=== PATIENT | female | born 1955 | race Caucasian/White ===

== ENCOUNTER → 2016-12-09 | Outpatient (CLI) | payer MEDICARE, BC ==
[2016-12-09 09:46] VITALS: BP 155/68; PULSE 66; RESP 16; TEMP 98.5; BMI 42.1
[2016-12-09 11:18] LABS: CH 30.6; CHCM 32.9; HCT 40.1 % (34.0-46.0); HDW 2.32; HGB 13.2 gm/dL (11.4-16.0); MCH 30.6 pg (25.0-35.0); MCHC 32.8 g/dL (31.0-37.0); MCV 93.3 fL (80.0-100.0); Mean Platelet Volume 7.1; RDW 12.5 % (11.5-15.5); WBC 6.3 k/uL (3.8-10.6)
[2016-12-09 11:51] LABS: ALT 31 U/L (9-52); AST 20 U/L (14-36); Alkaline Phosphatase 88 U/L (38-126); Anion Gap 10 mmol/L; Blood Urea Nitrogen 21 mg/dL (7-17); Calcium 9.4 mg/dL (8.4-10.2); Carbon Dioxide 28 mmol/L (22-30); Chloride 104 mmol/L (98-107); Cholesterol 207 mg/dL (<200); Glucose 114 mg/dL (74-99); HDL Cholesterol 70 mg/dL (40-60); Iron 92 ug/dL (37-170); Magnesium 1.9 mg/dL (1.6-2.3); Non-African American GFR(MDRD) >60 (>60 ml/min/1.73 sqM); Phosphorous 3.9 mg/dL (2.5-4.5); Potassium 4.6 mmol/L (3.5-5.1); Sodium 142 mmol/L (137-145); Total Bilirubin 0.4 mg/dL (0.2-1.3); Triglycerides 111 mg/dL (<150)
[2016-12-09 12:01] LABS: Prealbumin 22 mg/dL (18-36); Total Iron Binding Capacity 294 ug/dL (265-497)
[2016-12-09 12:56] LABS: Vitamin B12 763 pg/mL (239-931)
--- NOTE | 2016-12-09 14:25 | P.HPBAR ---
Bariatric H&P - History & Physicial History & Physicial: Visit/CC: Bariatric follow up Patient initial contact: Morbid obesity status post laparoscopic sleeve gastrectomy 02/10/2016 61 years old female with morbid obesity initial BMI 59.3, height 5 feet 5 inches , weight 165.65 kgs status post laparoscopic sleeve gastrectomy .She she has not been able to lose much weight. She admits to eating cake and cookies. At one time she eats about 5 cookies.. No nausea or vomiting. No postprandial right upper quadrant pain. Back pain and joint pain improved after weight loss. She is undergoing knee replacement in Dec 2016. Her comorbid conditions include obstructive sleep apnea on CPAP, chronic venous stasis in bilateral lower extremities, lymphedema bilateral lower legs, hypertension, bipolar disorder with depression, binge eating disorder , panic disorder with Agoraphobia , hypothyroidism , bilateral knee arthritis, left shoulder arthritis, chronic back pain, impaired glucose levels, atrial fibrillation on Xarelto. Preoperative visit #1 08/01/14 : WEIGHT 165.65 kgs, BMI 59.3 Preoperative visit #2 09/25/2015: Weight 156.26 kgs, BMI 57.3 Preoperative visit #3 10/09/2015: Weight 159.32kgs, BMI 58.5 Preoperative visit #4 02/05/2016: Weight 146.14 kgs, BMI 53.6 Surgery date: 02/10/2016 Postoperative visit #1 02/19/2016: Weight 142 KG, BMI 52.2 Postoperative visit #2 03/04/2016: Weight 136.12 KG, BMI 49.9 Postoperative visit #3 05/06/2016: Weight 127KG, BMI 46.6 Postoperative visit #4, 08/19/2016, weight 123.19 KG, BMI 45.1 Postoperative visit #5, 12/09/2016, weight 117.57KG, BMI 42 Review of Systems Constitutional: Denies fever, weight loss or loss of appetite HEENT: No difficulty in vision or hearing. Denies dysphagia. Wears glasses Cardiovascular: Denies chest pain, palpitations, dizziness, shortness of breath. Respiratory: No asthma . No cough or respiratory tract infection.Recently diagnosed sleep apnea on CPAP Gastrointestinal: No recent change in bowel habits, no abdominal pain, no nausea or vomiting. Last colonoscopy was 5years ago Integumentary: Long-standing skin changes with intermittent skin breakdown in bilateral lower extremities. Increased ankle swelling at the end of the day. Skin rash has resolved Genitourinary: Urinary incontinence. Wears diapers . Neurologic: No seizures, denies weakness in upper or lower extremities Musculoskeletal: Chronic left knee pain. Residual pain in right knee S/P knee replacement x2. Chronic left shoulder pain and low back pain. Psychiatry: Known history of Bipolar disorder, anxiety disorder and binge eating disorder. No suicidal thoughts Social History: Friends and family support available. Has daughter and grandchildren. She is . Past Medical History Past Medical History: Atrial Fibrillation, Diabetes Mellitus, GERD/Reflux, Hypertension, Osteoarthritis (OA), Sleep Apnea/CPAP/BIPAP, Thyroid Disorder Additional Past Medical History / Comment(s): A-Fib, JOSEPH with CPAP, borderline diabetes, hypothyroidism, URINARY INCONTINENCE, Chronic back pain, post menopausal, right knee replacement, left knee pain needs replacement 12/22/16 History of Any Multi-Drug Resistant Organisms: None Reported Past Surgical History: Adenoidectomy, Appendectomy, Bariatric Surgery, Breast Surgery, Joint Replacement, Orthopedic Surgery, Tonsillectomy Additional Past Surgical History / Comment(s): 02/10/16 laparoscopic sleeve gastrectomy. Other surgeries: breast bx, Rt knee replaced x2, Lt shoulder surgery, ANDRZEJ EYE SX FOR LAZY EYE, PAIN CLINIC PROCEDURES Past Anesthesia/Blood Transfusion Reactions: No Reported Reaction Past Psychological History: Bipolar Additional Psychological History / Comment(s): Pt resides alone. She is independent. She uses a wheeled walker to ambulate. She drives. She has no home care agency use. She has a CPAP machine which she brought with her. Smoking Status: Former smoker Past Alcohol Use History: None Reported Additional Past Alcohol Use History / Comment(s): quit smoking at age 33 started smoking at age 17 Past Drug Use History: None Reported - Past Family History Father Family Medical History: CVA/TIA Additional Family Medical History / Comment(s): Father at age 93 yrs. Mother Family Medical History: Cancer Additional Family Medical History / Comment(s): Mother had breast cancer. She at age 56 yrs. Surgical - Exam Vital Signs Temp Pulse Resp BP 98.5 F 66 16 155/68 12/09/16 09:16 12/09/16 09:16 12/09/16 09:16 12/09/16 09:16 General: Patient is alert and oriented to time, place and person and cooperative with exam. She is not in acute distress. S HEENT: No pallor, no icterus, no thyroid enlargement, no cervical lymphadenopathy. Chest: Bilateral equal breath sounds present. No wheezes, no crackles. Cardiovascular: Regular rate and rhythm. Abdomen: Soft, nontender, nondistended. No right upper quadrant tenderness. Her incisions are clean dry and intact. No surgical site infection Integumentary: Bilateral lower extremity chronic venous dermatitis. Bilateral edema and mild redness Neurologic: Cranial nerves II-XII intact. Strength upper and lower extremities 5/5. Psychiatric: No anxiety or psychosis. No suicidal thoughts. Results - Labs 12/09/16 10:31 12/09/16 10:31 Abnormal Lab Results - Last 24 Hours (Table) 12/09/16 Range/Units 10:31 BUN 21 H (7-17) mg/dL Glucose 114 H (74-99) mg/dL Cholesterol 207 H (<200) mg/dL LDL Cholesterol, Calc 115 H (0-99) mg/dL HDL Cholesterol 70 H (40-60) mg/dL Diabetes panel 12/09/16 Range/Units 10:31 Sodium 142 (137-145) mmol/L Potassium 4.6 (3.5-5.1) mmol/L Chloride 104 (98-107) mmol/L Carbon Dioxide 28 (22-30) mmol/L BUN 21 H (7-17) mg/dL Creatinine 0.80 (0.52-1.04) mg/dL Glucose 114 H (74-99) mg/dL Calcium 9.4 (8.4-10.2) mg/dL AST 20 (14-36) U/L ALT 31 (9-52) U/L Alkaline Phosphatase 88 (38-126) U/L Total Protein 7.0 (6.3-8.2) g/dL Albumin 4.1 (3.5-5.0) g/dL Triglycerides 111 (<150) mg/dL HDL Cholesterol 70 H (40-60) mg/dL Thyroid panel 12/09/16 Range/Units 10:31 TSH 3.200 (0.465-4.680) mIU/L Calcium panel 12/09/16 Range/Units 10:31 Calcium 9.4 (8.4-10.2) mg/dL Phosphorus 3.9 (2.5-4.5) mg/dL Albumin 4.1 (3.5-5.0) g/dL Pituitary panel 12/09/16 Range/Units 10:31 Sodium 142 (137-145) mmol/L Potassium 4.6 (3.5-5.1) mmol/L Chloride 104 (98-107) mmol/L Carbon Dioxide 28 (22-30) mmol/L BUN 21 H (7-17) mg/dL Creatinine 0.80 (0.52-1.04) mg/dL Glucose 114 H (74-99) mg/dL Calcium 9.4 (8.4-10.2) mg/dL TSH 3.200 (0.465-4.680) mIU/L Adrenal panel 12/09/16 Range/Units 10:31 Sodium 142 (137-145) mmol/L Potassium 4.6 (3.5-5.1) mmol/L Chloride 104 (98-107) mmol/L Carbon Dioxide 28 (22-30) mmol/L BUN 21 H (7-17) mg/dL Creatinine 0.80 (0.52-1.04) mg/dL Glucose 114 H (74-99) mg/dL Calcium 9.4 (8.4-10.2) mg/dL Total Bilirubin 0.4 (0.2-1.3) mg/dL AST 20 (14-36) U/L ALT 31 (9-52) U/L Alkaline Phosphatase 88 (38-126) U/L Total Protein 7.0 (6.3-8.2) g/dL Albumin 4.1 (3.5-5.0) g/dL Bariatric Assessment & Plan (1) Arthritis of left knee Status: Acute (2) Atrial fibrillation Status: Acute (3) Bipolar disorder Status: Acute (4) Hypothyroid Status: Acute (5) Low back pain Status: Acute (6) Sleep apnea Status: Acute Plan: 1. Patient demonstrating binge eating behavior. Extensive counseling done. Maintain food diary. Dietitian consult today 2. Repeat labs 3. Encourage attending bariatric support meeting 4. Okay to proceed with the knee surgery as per Dr. Graeme Villarreal. 5. Resume daily multivitamin 6. Follow up at the bariatric center in 3 months 7. Bilateral screening mammogram Bariatric Checklist Checklist: Plan: Checklist: EGD: 1. Hiatal hernia: 2. H. Pylori: HgbA1c: Vitamin D: Smoking: Former smoker Primary care physician referral: Lenora Psychiatry clearance: Cardiology clearance: Sleep study: Diet journal: VTE risk score: VTE risk level: Rehab needs at discharge:
[2016-12-16 18:30] LABS: Selenium 113 mcg/L (63-160)
== END | disposition home or self-care (01) ==
LOC: BARWHC3 09:15
PROVIDERS: ATTEND Surgery
DX: Z48.815 Encounter for surgical aftercare following surgery on the digestive system (principal); Z71.3 Dietary counseling and surveillance; Z98.84 Bariatric surgery status; E66.01 Morbid (severe) obesity due to excess calories; Z68.41 Body mass index [BMI] 40.0-44.9, adult; G47.30 Sleep apnea, unspecified; Z99.89 Dependence on other enabling machines and devices; Z87.891 Personal history of nicotine dependence; I48.91 Unspecified atrial fibrillation; F31.9 Bipolar disorder, unspecified; M19.072 Primary osteoarthritis, left ankle and foot; E03.9 Hypothyroidism, unspecified; M54.5 Low back pain; F50.81 Binge eating disorder
CPT/HCPCS: 84255; 84134; 84425; 80061; 80053; 82607; 82728; 82525; 82746; 83540; 83550; 83735; 84100; 84443; 84590; 84630; 85027; 82306; 97803; 36415; G0463; 99211

== ENCOUNTER → 2017-03-24 | Outpatient (CLI) | payer MEDICARE, BC ==
[2017-03-24 10:46] VITALS: BP 132/70; PULSE 66; RESP 16; TEMP 97; BMI 40.4
--- NOTE | 2017-03-24 11:49 | P.GSHP ---
History of Present Illness H&P Date: 03/24/17 Chief Complaint: S/P lap sleeve gastrectomy 61 years old female with morbid obesity initial BMI 59.3, height 5 feet 5 inches , weight 165.65 kgs status post laparoscopic sleeve gastrectomy .She has been adhering to post bariatric surgery diet and has good results with weight loss. No nausea or vomiting. No postprandial right upper quadrant pain. Back pain and joint pain improved after weight loss. S/P left knee replacement in Dec 2016. Her comorbid conditions include obstructive sleep apnea on CPAP, chronic venous stasis in bilateral lower extremities, lymphedema bilateral lower legs, hypertension, bipolar disorder with depression, binge eating disorder , panic disorder with Agoraphobia , hypothyroidism , bilateral knee arthritis, left shoulder arthritis, chronic back pain, impaired glucose levels, atrial fibrillation on Xarelto. Preoperative visit #1 08/01/14 : WEIGHT 165.65 kgs, BMI 59.3 Preoperative visit #2 09/25/2015: Weight 156.26 kgs, BMI 57.3 Preoperative visit #3 10/09/2015: Weight 159.32kgs, BMI 58.5 Preoperative visit #4 02/05/2016: Weight 146.14 kgs, BMI 53.6 Surgery date: 02/10/2016 Postoperative visit #1 02/19/2016: Weight 142 KG, BMI 52.2 Postoperative visit #2 03/04/2016: Weight 136.12 KG, BMI 49.9 Postoperative visit #3 05/06/2016: Weight 127KG, BMI 46.6 Postoperative visit #4, 08/19/2016, weight 123.19 KG, BMI 45.1 Postoperative visit #5, 12/09/2016, weight 117.57KG, BMI 42 Postoperative visit #5, 03/24/2017, weight 110.02KG, BMI 40 - Review of Systems Comment: Constitutional: Denies fever, weight loss or loss of appetite HEENT: No difficulty in vision or hearing. Denies dysphagia. Wears glasses Cardiovascular: Denies chest pain, palpitations, dizziness, shortness of breath. Respiratory: No asthma . No cough or respiratory tract infection.Recently diagnosed sleep apnea on CPAP Gastrointestinal: No recent change in bowel habits, no abdominal pain, no nausea or vomiting. Last colonoscopy was 5years ago Integumentary: Long-standing skin changes with intermittent skin breakdown in bilateral lower extremities. Increased ankle swelling at the end of the day. Skin rash has resolved Genitourinary: Urinary incontinence. Wears diapers . Neurologic: No seizures, denies weakness in upper or lower extremities Musculoskeletal: Chronic left knee pain. Residual pain in right knee S/P knee replacement x2. Chronic left shoulder pain and low back pain. Psychiatry: Known history of Bipolar disorder, anxiety disorder and binge eating disorder. No suicidal thoughts Social History: Friends and family support available. Has daughter and grandchildren. Past Medical History Past Medical History: Atrial Fibrillation, Diabetes Mellitus, GERD/Reflux, Hypertension, Osteoarthritis (OA), Sleep Apnea/CPAP/BIPAP, Thyroid Disorder Additional Past Medical History / Comment(s): A-Fib, JOSEPH with CPAP, borderline diabetes, hypothyroidism, URINARY INCONTINENCE, Chronic back pain, post menopausal, right knee replacement, left knee pain needs replacement 12/22/16 History of Any Multi-Drug Resistant Organisms: None Reported Past Surgical History: Adenoidectomy, Appendectomy, Bariatric Surgery, Breast Surgery, Joint Replacement, Orthopedic Surgery, Tonsillectomy Additional Past Surgical History / Comment(s): 02/10/16 laparoscopic sleeve gastrectomy. Other surgeries: breast bx, Rt knee replaced x2, Lt shoulder surgery, ANDRZEJ EYE SX FOR LAZY EYE, PAIN CLINIC PROCEDURES Knee Surgery in December 2016 Past Anesthesia/Blood Transfusion Reactions: No Reported Reaction Past Psychological History: Bipolar Additional Psychological History / Comment(s): Pt resides alone. She is independent. She uses a wheeled walker to ambulate. She drives. She has no home care agency use. She has a CPAP machine which she brought with her. Smoking Status: Former smoker Past Alcohol Use History: None Reported Additional Past Alcohol Use History / Comment(s): quit smoking at age 33 started smoking at age 17 Past Drug Use History: None Reported - Past Family History Father Family Medical History: CVA/TIA Additional Family Medical History / Comment(s): Father at age 93 yrs. Mother Family Medical History: Cancer Additional Family Medical History / Comment(s): Mother had breast cancer. She at age 56 yrs. Medications and Allergies Home Medications Medication Instructions Recorded Confirmed Type Famotidine [Pepcid] 20 mg PO QAM 04/02/14 03/24/17 History Furosemide [Lasix] 40 mg PO DAILY PRN 04/02/14 03/24/17 History Sertraline [Zoloft] 200 mg PO QAM 04/02/14 03/24/17 History carBAMazepine [TEGretol XR] 200 mg PO BID 04/02/14 03/24/17 History Rivaroxaban [Xarelto] 20 mg PO HS 12/28/14 03/24/17 History Flecainide Acetate [Tambocor] 100 mg PO Q12HR 01/29/16 03/24/17 History Levothyroxine Sodium [Synthroid] 100 mcg PO DAILY 01/29/16 03/24/17 History Calcium Carbonate [Calcium] 600 mg PO DAILY 05/06/16 03/24/17 History Cholecalciferol [Vitamin D3] 1,000 unit PO DAILY 05/06/16 03/24/17 History Hydrocodone/Acetaminophen [Vicodin 1 tab PO Q6HR PRN 05/06/16 03/24/17 History 5-300 mg Tablet] Multivitamin [Multivitamins Adult 1 each PO DAILY 05/06/16 03/24/17 History Gummies] Gabapentin [Neurontin] 300 mg PO HS 03/24/17 03/24/17 History Allergies Allergy/AdvReac Type Severity Reaction Status Date / Time lithium [Pr[place]] Allergy Severe Rash/Hives Verified 03/24/17 11:07 Surgical - Exam Vital Signs Temp Pulse Resp BP 97.0 F L 66 16 132/70 03/24/17 10:44 03/24/17 10:44 03/24/17 10:44 03/24/17 10:44 General: Patient is alert and oriented to time, place and person and cooperative with exam. She is not in acute distress. HEENT: No pallor, no icterus, no thyroid enlargement, no cervical lymphadenopathy. Chest: Bilateral equal breath sounds present. No wheezes, no crackles. Cardiovascular: Regular rate and rhythm. Abdomen: Soft, nontender, nondistended. No right upper quadrant tenderness. Her incisions are clean dry and intact. Integumentary: Bilateral lower extremity chronic venous dermatitis. Bilateral edema and mild redness in the groin creases Neurologic: Cranial nerves II-XII intact. Strength upper and lower extremities 5/5. Psychiatric: No anxiety or psychosis. No suicidal thoughts. Assessment and Plan (1) Arthritis of left knee Status: Acute (2) Atrial fibrillation Status: Acute (3) Bipolar disorder Status: Acute (4) Hypertension Status: Acute (5) Hypothyroid Status: Acute (6) Low back pain Status: Acute (7) Sleep apnea Status: Acute Plan: 1. Continue with diet plan 2. Increase physical activity as tolerated 3. Continue MVI 4. Check labs 5. Bilateral screening mammograms 6. Follow up in 6 months
== END | disposition home or self-care (01) ==
LOC: BARWHC3 10:00
PROVIDERS: ATTEND Surgery
DX: Z48.815 Encounter for surgical aftercare following surgery on the digestive system (principal); M17.12 Unilateral primary osteoarthritis, left knee; I48.91 Unspecified atrial fibrillation; I10 Essential (primary) hypertension; E03.9 Hypothyroidism, unspecified; G47.30 Sleep apnea, unspecified; F31.9 Bipolar disorder, unspecified; E11.9 Type 2 diabetes mellitus without complications; K21.9 Gastro-esophageal reflux disease without esophagitis; Z87.891 Personal history of nicotine dependence; Z79.899 Other long term (current) drug therapy; Z79.01 Long term (current) use of anticoagulants; Z88.8 Allergy status to other drugs, medicaments and biological substances; E66.01 Morbid (severe) obesity due to excess calories; Z68.43 Body mass index [BMI] 50.0-59.9, adult; Z98.84 Bariatric surgery status
CPT/HCPCS: 99211

== ENCOUNTER → 2017-03-30 | Outpatient (CLI) | payer MEDICARE, BC ==
[2017-03-30 13:39] LABS: ALT 33 U/L (9-52); AST 17 U/L (14-36); Alkaline Phosphatase 82 U/L (38-126); Anion Gap 9 mmol/L; Blood Urea Nitrogen 18 mg/dL (7-17); Calcium 9.7 mg/dL (8.4-10.2); Carbon Dioxide 26 mmol/L (22-30); Chloride 105 mmol/L (98-107); Cholesterol 218 mg/dL (<200); Glucose 95 mg/dL (74-99); HDL Cholesterol 79 mg/dL (40-60); Non-African American GFR(MDRD) >60 (>60 ml/min/1.73 sqM); Potassium 4.7 mmol/L (3.5-5.1); Sodium 140 mmol/L (137-145); Total Bilirubin 0.4 mg/dL (0.2-1.3); Total Protein 6.8 g/dL (6.3-8.2); Triglycerides 103 mg/dL (<150)
[2017-03-30 13:54] LABS: CH 30.7; CHCM 32.6; HDW 2.29; HGB 13.2 gm/dL (11.4-16.0); MCH 30.6 pg (25.0-35.0); MCHC 32.3 g/dL (31.0-37.0); MCV 94.7 fL (80.0-100.0); Mean Platelet Volume 7.1; RBC 4.33 m/uL (3.80-5.40); RDW 12.7 % (11.5-15.5); WBC 5.5 k/uL (3.8-10.6)
[2017-03-30 17:59] LABS: Hemoglobin A1C 5.5 % (4.2-6.1)
== END ==
LOC: LABWHC1 12:30
PROVIDERS: ATTEND Surgery
DX: Z48.815 Encounter for surgical aftercare following surgery on the digestive system (principal); E66.01 Morbid (severe) obesity due to excess calories; Z98.84 Bariatric surgery status
CPT/HCPCS: 36415; 80053; 80061; 82306; 83036; 85027

== ENCOUNTER → 2017-05-25 | Outpatient (CLI) | payer MEDICARE, BC ==
--- NOTE | 2017-05-25 14:29 | MM ---
Reason for exam: additional evaluation requested from prior study. Last mammogram was performed 1 year ago. History: Patient is postmenopausal. Family history of breast cancer in mother at age 53. Benign US biopsy breast VAD LT of the left breast, June 03, 2016. Benign excisional biopsy of the left breast, June 2015. Benign excisional biopsy of the right breast. Physical Findings: Nurse did not find any significant physical abnormalities on exam. MG 3D Diag Mammo W/Cad ANDRZEJ Bilateral CC and MLO view(s) were taken. Prior study comparison: June 03, 2016, left breast MG diagnostic mammo LT wo CAD. May 21, 2016, bilateral MG 3d diag mammo w/cad ANDRZEJ. There are scattered fibroglandular densities. Finding #1: There is stable architectural distortion in both breasts consistent with known biopsy. Finding #2: There are typically benign round, diffuse/scattered and grouped calcifications in both breasts. Previous mammotome biopsy in the left breast. There is no discrete abnormality. These results were verbally communicated with the patient and result sheet given to the patient on 05/25/17. ASSESSMENT: Benign, BI-RAD 2 RECOMMENDATION: Routine screening mammogram of both breasts in 1 year.
== END | disposition home or self-care (01) ==
LOC: RADMAMWWP 13:42
PROVIDERS: ATTEND Surgery
DX: R92.8 Other abnormal and inconclusive findings on diagnostic imaging of breast (principal)
CPT/HCPCS: G0204; G0279

== ENCOUNTER → 2018-02-07 | Outpatient (CLI) | payer MEDICARE, BC ==
[2018-02-07 13:36] VITALS: BP 149/68; PULSE 105; TEMP 98.4; BMI 41.2
[2018-02-07 14:40] LABS: HCT 42.8 % (34.0-46.0); HGB 13.8 gm/dL (11.4-16.0); MCH 29.2 pg (25.0-35.0); MCHC 32.2 g/dL (31.0-37.0); MCV 90.5 fL (80.0-100.0); Mean Platelet Volume 7.1; Platelet Count 354 k/uL (150-450); RBC 4.73 m/uL (3.80-5.40); RDW 12.5 % (11.5-15.5); WBC 7.4 k/uL (3.8-10.6)
[2018-02-07 15:03] LABS: ALT 24 U/L (9-52); AST 22 U/L (14-36); Albumin 4.3 g/dL (3.5-5.0); Alkaline Phosphatase 97 U/L (38-126); Anion Gap 12 mmol/L; Blood Urea Nitrogen 30 mg/dL (7-17); Calcium 9.8 mg/dL (8.4-10.2); Carbon Dioxide 29 mmol/L (22-30); Chloride 101 mmol/L (98-107); Glucose 109 mg/dL (74-99); Sodium 142 mmol/L (137-145); Total Bilirubin 0.3 mg/dL (0.2-1.3); Total Protein 7.6 g/dL (6.3-8.2)
--- NOTE | 2018-02-07 16:51 | P.HPBAR ---
Bariatric H&P - History & Physicial H&P Date: 02/07/18 History & Physicial: Visit/CC: two year follow up Patient initial contact: Initial weight: 165.652 kg Initial weight in pounds: 365.20 Height: 5 ft 5 in Initial BMI: 60.7 Last weight: Current weight: 112.491 kg Current weight in pounds: 248.00 Current BMI: 41.2 Calvin body weight (based on NIH guidelines): 56.699 kg Excess body weight loss: 48.7% The patient is a 62 year-old F who presents for Bariatric Assessment. Patient presents today for gastric sleeve follow-up. She is a previous patient of Dr. isabel. She has gained some weight over the last few months. She's had some minimal GERD. She also some complaints of knee and hip arthritis. Past Medical History Past Medical History: Atrial Fibrillation, GERD/Reflux, Hypertension, Osteoarthritis (OA), Sleep Apnea/CPAP/BIPAP, Thyroid Disorder Additional Past Medical History / Comment(s): A-Fib, JOSEPH with CPAP, borderline diabetes, hypothyroidism, URINARY INCONTINENCE, Chronic back pain, post menopausal, right knee replacement, left knee pain needs replacement 12/22/16 History of Any Multi-Drug Resistant Organisms: None Reported Past Surgical History: Adenoidectomy, Appendectomy, Bariatric Surgery, Breast Surgery, Joint Replacement, Orthopedic Surgery, Tonsillectomy Additional Past Surgical History / Comment(s): 02/10/16 laparoscopic sleeve gastrectomy. Other surgeries: breast bx, Rt knee replaced x2, Lt shoulder surgery, ANDRZEJ EYE SX FOR LAZY EYE, PAIN CLINIC PROCEDURES Knee Surgery in December 2016 Past Anesthesia/Blood Transfusion Reactions: No Reported Reaction Past Psychological History: Bipolar Additional Psychological History / Comment(s): Pt resides alone. She is independent. She uses a wheeled walker to ambulate. She drives. She has no home care agency use. She has a CPAP machine which she brought with her. Smoking Status: Former smoker Past Alcohol Use History: None Reported Additional Past Alcohol Use History / Comment(s): quit smoking at age 33 started smoking at age 17 Past Drug Use History: None Reported - Past Family History Father Family Medical History: CVA/TIA Additional Family Medical History / Comment(s): Father at age 93 yrs. Mother Family Medical History: Cancer Additional Family Medical History / Comment(s): Mother had breast cancer. She at age 56 yrs. Surgical - Exam Vital Signs Temp Pulse BP 98.4 F 105 H 149/68 02/07/18 13:33 02/07/18 13:33 02/07/18 13:33 - General well developed, no distress - Eyes PERRL - ENT normal pinna - Neck no masses - Respiratory normal expansion - Cardiovascular Rhythm: regular - Abdomen Abdomen: soft, non tender Results - Labs 02/07/18 14:24 02/07/18 14:24 Abnormal Lab Results - Last 24 Hours (Table) 02/07/18 Range/Units 14:24 BUN 30 H (7-17) mg/dL Glucose 109 H (74-99) mg/dL Diabetes panel 02/07/18 Range/Units 14:24 Sodium 142 (137-145) mmol/L Potassium 5.0 (3.5-5.1) mmol/L Chloride 101 (98-107) mmol/L Carbon Dioxide 29 (22-30) mmol/L BUN 30 H (7-17) mg/dL Creatinine 0.70 (0.52-1.04) mg/dL Glucose 109 H (74-99) mg/dL Calcium 9.8 (8.4-10.2) mg/dL AST 22 (14-36) U/L ALT 24 (9-52) U/L Alkaline Phosphatase 97 (38-126) U/L Total Protein 7.6 (6.3-8.2) g/dL Albumin 4.3 (3.5-5.0) g/dL Thyroid panel 02/07/18 Range/Units 14:24 TSH 1.780 (0.465-4.680) mIU/L Calcium panel 02/07/18 Range/Units 14:24 Calcium 9.8 (8.4-10.2) mg/dL Albumin 4.3 (3.5-5.0) g/dL Pituitary panel 02/07/18 Range/Units 14:24 Sodium 142 (137-145) mmol/L Potassium 5.0 (3.5-5.1) mmol/L Chloride 101 (98-107) mmol/L Carbon Dioxide 29 (22-30) mmol/L BUN 30 H (7-17) mg/dL Creatinine 0.70 (0.52-1.04) mg/dL Glucose 109 H (74-99) mg/dL Calcium 9.8 (8.4-10.2) mg/dL TSH 1.780 (0.465-4.680) mIU/L Adrenal panel 02/07/18 Range/Units 14:24 Sodium 142 (137-145) mmol/L Potassium 5.0 (3.5-5.1) mmol/L Chloride 101 (98-107) mmol/L Carbon Dioxide 29 (22-30) mmol/L BUN 30 H (7-17) mg/dL Creatinine 0.70 (0.52-1.04) mg/dL Glucose 109 H (74-99) mg/dL Calcium 9.8 (8.4-10.2) mg/dL Total Bilirubin 0.3 (0.2-1.3) mg/dL AST 22 (14-36) U/L ALT 24 (9-52) U/L Alkaline Phosphatase 97 (38-126) U/L Total Protein 7.6 (6.3-8.2) g/dL Albumin 4.3 (3.5-5.0) g/dL Bariatric Assessment & Plan Plan: The patient had her routine postoperative labs ordered. She will follow-up in 8 -12 weeks. Her GERD symptoms are minimal be observed. She will try to get more exercise and make the right wrist with her diet. Bariatric Checklist Checklist: Plan: Checklist: EGD: 1. Hiatal hernia: 2. H. Pylori: HgbA1c: Vitamin D: Smoking: Former smoker Primary care physician referral: dr lewis Psychiatry clearance: Cardiology clearance: Sleep study: Diet journal: VTE risk score: VTE risk level: Rehab needs at discharge:
== END | disposition home or self-care (01) ==
LOC: BARWHC3 13:08
PROVIDERS: ATTEND Surgery
DX: Z48.815 Encounter for surgical aftercare following surgery on the digestive system (principal); E66.01 Morbid (severe) obesity due to excess calories; K21.9 Gastro-esophageal reflux disease without esophagitis; E44.0 Moderate protein-calorie malnutrition; E55.9 Vitamin D deficiency, unspecified; Z68.41 Body mass index [BMI] 40.0-44.9, adult; Z87.891 Personal history of nicotine dependence; Z98.84 Bariatric surgery status
CPT/HCPCS: 80156; 80053; 82607; 84443; 85027; 82306; 36415; G0463; 99211

== ENCOUNTER → 2018-04-18 | Outpatient (CLI) | payer MEDICARE, BC ==
[2018-04-18 14:59] VITALS: BP 145/88; PULSE 123; RESP 16; TEMP 97.7; BMI 42.3
--- NOTE | 2018-04-18 16:33 | P.HPBAR ---
Bariatric H&P - History & Physicial H&P Date: 04/18/18 History & Physicial: Visit/CC: sleeve follow-up Patient initial contact: Initial weight: 165.652 kg Initial weight in pounds: 365.20 Height: 5 ft 5 in Initial BMI: 60.7 Last weight: Current weight: 115.212 kg Current weight in pounds: 254.00 Current BMI: 42.3 [place] body weight (based on NIH guidelines): 56.699 kg Excess body weight loss: 46.2% Patient presents today for sleeve gastrectomy follow-up The patient is a 62 year-old F who presents for Bariatric Assessment. She's had some mild complaints of GERD. Past Medical History Past Medical History: Atrial Fibrillation, GERD/Reflux, Hypertension, Osteoarthritis (OA), Sleep Apnea/CPAP/BIPAP, Thyroid Disorder Additional Past Medical History / Comment(s): A-Fib, JOSEPH with CPAP, borderline diabetes, hypothyroidism, URINARY INCONTINENCE, Chronic back pain, post menopausal, right knee replacement, left knee pain needs replacement 12/22/16 History of Any Multi-Drug Resistant Organisms: None Reported Past Surgical History: Adenoidectomy, Appendectomy, Bariatric Surgery, Breast Surgery, Joint Replacement, Orthopedic Surgery, Tonsillectomy Additional Past Surgical History / Comment(s): 02/10/16 laparoscopic sleeve gastrectomy. Other surgeries: breast bx, Rt knee replaced x2, Lt shoulder surgery, ANDRZEJ EYE SX FOR LAZY EYE, PAIN CLINIC PROCEDURES Knee Surgery in December 2016 Past Anesthesia/Blood Transfusion Reactions: No Reported Reaction Past Psychological History: Bipolar Additional Psychological History / Comment(s): Pt resides alone. She is independent. She uses a wheeled walker to ambulate. She drives. She has no home care agency use. She has a CPAP machine which she brought with her. Smoking Status: Former smoker Past Alcohol Use History: None Reported Additional Past Alcohol Use History / Comment(s): quit smoking at age 33 started smoking at age 17 Past Drug Use History: None Reported - Past Family History Father Family Medical History: CVA/TIA Additional Family Medical History / Comment(s): Father at age 93 yrs. Mother Family Medical History: Cancer Additional Family Medical History / Comment(s): Mother had breast cancer. She at age 56 yrs. Surgical - Exam Vital Signs Temp Pulse Resp BP 97.7 F 123 H 16 145/88 04/18/18 14:55 04/18/18 14:55 04/18/18 14:55 04/18/18 14:55 - General well developed, no distress - Eyes PERRL - ENT normal pinna - Neck no masses - Abdomen Abdomen: soft, non tender Bariatric Assessment & Plan Plan: Patient is doing well. She's had excellent weight loss. Her GERD is will be observed. She'll follow-up in 8 weeks. Bariatric Checklist Checklist: Plan: Checklist: EGD: 1. Hiatal hernia: 2. H. Pylori: HgbA1c: Vitamin D: Smoking: Former smoker Primary care physician referral: dr lewis Psychiatry clearance: Cardiology clearance: Sleep study: Diet journal: VTE risk score: VTE risk level: Rehab needs at discharge:
== END | disposition home or self-care (01) ==
LOC: BARWHC3 13:54
PROVIDERS: ATTEND Surgery
DX: Z48.815 Encounter for surgical aftercare following surgery on the digestive system (principal); Z98.84 Bariatric surgery status; Z87.891 Personal history of nicotine dependence
CPT/HCPCS: 99211

== ENCOUNTER → 2018-06-22 | Outpatient (CLI) | payer MEDICARE, BC ==
--- NOTE | 2018-06-28 16:10 | MM ---
Reason for exam: screening (asymptomatic). Last mammogram was performed 1 year and 1 month ago. History: Patient is postmenopausal. Family history of breast cancer in mother at age 53. Benign US biopsy breast VAD LT of the left breast, June 03, 2016. Benign excisional biopsy of the left breast, June 2015. Benign excisional biopsy of the right breast. MG 3D Screening Mammo W/Cad Bilateral CC and MLO view(s) were taken. Prior study comparison: May 25, 2017, bilateral MG 3d diag mammo w/cad ANDRZEJ. June 03, 2016, left breast MG diagnostic mammo LT wo CAD. May 21, 2016, bilateral MG 3d diag mammo w/cad ANDRZEJ. There are scattered fibroglandular densities. There are benign appearing bilateral calcifications. No suspicious abnormality. Post biopsy changes left breast. No significant new finding from prior exam. ASSESSMENT: Benign, BI-RAD 2 RECOMMENDATION: Routine screening mammogram of both breasts in 1 year.
== END ==
LOC: RADMAMWWP 11:10
PROVIDERS: ATTEND Family Medicine
DX: Z12.31 Encounter for screening mammogram for malignant neoplasm of breast (principal); R92.0 Mammographic microcalcification found on diagnostic imaging of breast
CPT/HCPCS: 77063; 77067

== ENCOUNTER → 2019-08-07 | Outpatient (CLI) | payer MEDICARE, BC ==
[2019-08-07 13:21] VITALS: BP 156/77; PULSE 72; RESP 16; TEMP 98.1; BMI 39.1
[2019-08-07 15:06] LABS: HCT 42.1 % (34.0-46.0); MCH 30.3 pg (25.0-35.0); MCHC 33.3 g/dL (31.0-37.0); MCV 90.9 fL (80.0-100.0); Mean Platelet Volume 6.8; Platelet Count 372 k/uL (150-450); RBC 4.63 m/uL (3.80-5.40); RDW 12.4 % (11.5-15.5)
[2019-08-07 19:59] LABS: Vitamin D 25 Hydroxy 23.5 ng/mL (30.0-100.0)
[2019-08-07 20:00] LABS: Folate, Serum 4.7 ng/mL
[2019-08-07 20:24] LABS: African American GFR (CKD) 90.9 (60.0-200.0); Albumin 4.4 g/dL (3.80-4.90); Albumin/Globulin Ratio 1.91 (1.60-3.17); Anion Gap 11.3 mmol/L (4.00-12.00); BUN/Creat Ratio 16.25 Ratio (12.00-20.00); Calcium 9.4 mg/dL (8.7-10.3); Carbon Dioxide 26.7 mmol/L (21.6-31.8); Globulin 2.3 g/dL (1.6-3.3); Potassium 3.9 mmol/L (3.5-5.5); Total Bilirubin 0.5 mg/dL (0.3-1.2); Total Protein 6.7 g/dL (6.2-8.2)
--- NOTE | 2019-08-10 11:20 | P.HPBAR ---
Bariatric H&P - History & Physicial H&P Date: 08/10/19 History & Physicial: Visit/CC: sleeve f/u 2015 Patient initial contact: Initial weight: 165.652 kg Initial weight in pounds: 365.20 Height: 5 ft 5 in Initial BMI: 60.7 Last weight: Current weight: 106.594 kg Current weight in pounds: 235.00 Current BMI: 39.1 [place] body weight (based on NIH guidelines): 56.699 kg Excess body weight loss: 54.2% The patient is a 64 year-old F who presents for Bariatric Assessment. Patient presents today for sleeve gastrectomy follow-up. She's not been seen for over a year. She has complaints of abdominal pain apparently her PCP ordered a ultrasound shows evidence of cholelithiasis. She's had complaints of right quadrant pain. Past Medical History Past Medical History: Atrial Fibrillation, GERD/Reflux, Hypertension, Osteoarthritis (OA), Sleep Apnea/CPAP/BIPAP, Thyroid Disorder Additional Past Medical History / Comment(s): A-Fib, JOSEPH with CPAP, borderline diabetes, hypothyroidism, URINARY INCONTINENCE, Chronic back pain, post menopausal, right knee replacement, left knee pain needs replacement 12/22/16 History of Any Multi-Drug Resistant Organisms: None Reported Past Surgical History: Adenoidectomy, Appendectomy, Bariatric Surgery, Breast Surgery, Joint Replacement, Orthopedic Surgery, Tonsillectomy Additional Past Surgical History / Comment(s): 02/10/16 laparoscopic sleeve gastrectomy. Other surgeries: breast bx, Rt knee replaced x2, Lt shoulder surgery, ANDRZEJ EYE SX FOR LAZY EYE, PAIN CLINIC PROCEDURES Knee Surgery in December 2016 Past Anesthesia/Blood Transfusion Reactions: No Reported Reaction Past Psychological History: Bipolar Additional Psychological History / Comment(s): Pt resides alone. She is independent. She uses a wheeled walker to ambulate. She drives. She has no home care agency use. She has a CPAP machine which she brought with her. Smoking Status: Former smoker Past Alcohol Use History: None Reported Additional Past Alcohol Use History / Comment(s): quit smoking at age 33 started smoking at age 17 Past Drug Use History: None Reported - Past Family History Father Family Medical History: CVA/TIA Additional Family Medical History / Comment(s): Father at age 93 yrs. Mother Family Medical History: Cancer Additional Family Medical History / Comment(s): Mother had breast cancer. She at age 56 yrs. Surgical - Exam Vital Signs Temp Pulse Resp BP 98.1 F 72 16 156/77 08/07/19 13:19 08/07/19 13:19 08/07/19 13:19 08/07/19 13:19 - General well developed, well nourished, no distress - Eyes PERRL - ENT normal pinna - Abdomen Abdomen: soft, non tender Results - Labs 08/07/19 14:40 08/07/19 14:40 Bariatric Assessment & Plan Plan: Cholelithiasis Right upper quadrant pain Patient will be scheduled for laparoscopic cholecystectomy next week. Bariatric Checklist Checklist: Plan: Checklist: EGD: 1. Hiatal hernia: 2. H. Pylori: HgbA1c: Vitamin D: Smoking: Former smoker Primary care physician referral: dr lewis Psychiatry clearance: Cardiology clearance: Sleep study: Diet journal: VTE risk score: VTE risk level: Rehab needs at discharge:
== END | disposition home or self-care (01) ==
LOC: BARWHC3 11:45
PROVIDERS: ATTEND Surgery
DX: Z48.815 Encounter for surgical aftercare following surgery on the digestive system (principal); K80.20 Calculus of gallbladder without cholecystitis without obstruction; R10.11 Right upper quadrant pain; Z87.891 Personal history of nicotine dependence; E55.9 Vitamin D deficiency, unspecified; E66.01 Morbid (severe) obesity due to excess calories; Z68.39 Body mass index [BMI] 39.0-39.9, adult; Z98.890 Other specified postprocedural states; Z98.84 Bariatric surgery status; Z90.89 Acquired absence of other organs
CPT/HCPCS: 84425; 80053; 82607; 82746; 85027; 82306; G0463; 99211

== ENCOUNTER → 2019-08-07 | Outpatient (CLI) | payer MEDICARE, BC ==
--- NOTE | 2019-08-08 09:25 | MM ---
Reason for exam: screening (asymptomatic). Last mammogram was performed 1 year and 1 month ago. History: Patient is postmenopausal. Family history of breast cancer in mother at age 53. Benign US biopsy breast VAD LT of the left breast, June 03, 2016. Benign excisional biopsy of the left breast, June 2015. Benign excisional biopsy of the right breast. Physical Findings: A clinical breast exam by your physician is recommended on an annual basis and results should be correlated with mammographic findings. MG 3D Screening Mammo W/Cad Bilateral CC and MLO view(s) were taken. Prior study comparison: June 22, 2018, bilateral MG 3d screening mammo w/cad. May 25, 2017, bilateral MG 3d diag mammo w/cad ANDRZEJ. The breast tissue is heterogeneously dense. This may lower the sensitivity of mammography. There are similar appearing bilateral calcifications. Post excisional change bilaterally. No significant changes when compared with prior studies. ASSESSMENT: Benign, BI-RAD 2 RECOMMENDATION: Routine screening mammogram of both breasts in 1 year.
== END | disposition home or self-care (01) ==
LOC: RADMAMWWP 10:49
PROVIDERS: ATTEND Family Medicine
DX: Z12.31 Encounter for screening mammogram for malignant neoplasm of breast (principal)
CPT/HCPCS: 77063; 77067

== ENCOUNTER 2019-08-16 07:48 | Day surgery (SDC) | payer MEDICARE, BC ==
[2019-08-11 13:13] VITALS: BMI 37.8
[~2019-08-16 07:48] MED LIST: DEXAMETHASONE SOD PHOSPHATE 10 MG/ML 1 ML VIAL IV ONE; LACTATED RINGERS 1,000 ML IV SCH; LIDOCAINE 1% 20 ML VIAL (10MG/ML) FOR IV START INTRADERMA PRN; MIDAZOLAM 2 MG/2 ML VIAL IV PRN
[2019-08-16 08:28] LABS: Glucose,Whole Blood 100 mg/dL (75-99)
[2019-08-16] MEDS ORDERED: HEPARIN SODIUM,PORCINE 5,000 UNIT/ML 1 ML VIAL SQ ONE (09:05)
--- NOTE | 2019-08-16 09:06 | P.GSHP ---
History of Present Illness H&P Date: 08/16/19 Chief Complaint: Right upper quadrant pain This a 64-year-old female who's had complaints of epigastric quadrant pain. Her PCP had ordered a CAT scan which showed evidence of cholelithiasis. Patient is today for laparoscopic cholecystectomy. Past Medical History Past Medical History: Atrial Fibrillation, Diabetes Mellitus, GERD/Reflux, Hyperlipidemia, Hypertension, Osteoarthritis (OA), Sleep Apnea/CPAP/BIPAP, Thyroid Disorder Additional Past Medical History / Comment(s): Uses CPAP, hypothyroidism, URINARY INCONTINENCE, chronic back pain. History of Any Multi-Drug Resistant Organisms: None Reported Past Surgical History: Adenoidectomy, Appendectomy, Bariatric Surgery, Breast Surgery, Joint Replacement, Orthopedic Surgery, Tonsillectomy Additional Past Surgical History / Comment(s): Laparoscopic sleeve gastrectomy, breast biopsy, right knee replaced X2, left shoulder surgery, BILATERAL EYE SX FOR LAZY EYE, PAIN CLINIC PROCEDURES, left knee surgery, EGD. Past Anesthesia/Blood Transfusion Reactions: No Reported Reaction Past Psychological History: Bipolar Smoking Status: Former smoker Past Alcohol Use History: None Reported Additional Past Alcohol Use History / Comment(s): Quit smoking at age 33, started smoking at age 17. Past Drug Use History: Marijuana Additional Drug Use History / Comment(s): Used Marijuana once 3 months ago (Marijuana coffee). - Past Family History Father Family Medical History: CVA/TIA Additional Family Medical History / Comment(s): Father at age 93 yrs. Mother Family Medical History: Cancer Additional Family Medical History / Comment(s): Mother had breast cancer. She d ied at age 56 yrs. Medications and Allergies Home Medications Medication Instructions Recorded Confirmed Type carBAMazepine [TEGretol XR] 300 mg PO HS 04/02/14 08/16/19 History Rivaroxaban [Xarelto] 20 mg PO HS 12/28/14 08/16/19 History Levothyroxine Sodium [Synthroid] 100 mcg PO QAM 01/29/16 08/16/19 History Cholecalciferol [Vitamin D3] 1,000 unit PO DAILY 05/06/16 08/16/19 History clonazePAM [KlonoPIN] 1 mg PO HS 02/07/18 08/16/19 History Cyanocobalamin (Vitamin B-12) 1,000 mcg PO DAILY 04/18/18 08/16/19 History [Vitamin B-12] FLUoxetine HCL [PROzac] 20 mg PO BID 04/18/18 08/16/19 History Nystatin 100,000 Unit/gm Powd 1 applic TOPICAL TID 04/18/18 08/16/19 History [Mycostatin Powder] Dexlansoprazole [Dexilant] 60 mg PO QAM 08/07/19 08/16/19 History Diclofenac Sodium [Voltaren Gel] 2 gram TOPICAL QID 08/07/19 08/16/19 History Hydrochlorothiazide 25 mg PO QAM 08/07/19 08/16/19 History Melatonin 10 mg PO HS 08/07/19 08/16/19 History Montelukast [Singulair] 10 mg PO DAILY 08/07/19 08/16/19 History Omeprazole 20 mg PO HS 08/07/19 08/16/19 History Simvastatin [Zocor] 5 mg PO HS 08/07/19 08/16/19 History metFORMIN HCL [Glucophage] 500 mg PO BID 08/07/19 08/16/19 History Carvedilol [Coreg] 12.5 mg PO BID 08/11/19 08/16/19 History carBAMazepine [TEGretol XR] 200 mg PO QAM 08/11/19 08/16/19 History Allergies Allergy/AdvReac Type Severity Reaction Status Date / Time lithium [[place]] Allergy Severe Rash/Hives Verified 08/16/19 08:05 lisinopril Allergy Cough Verified 08/16/19 08:05 Surgical - Exam Vital Signs Temp Pulse Resp BP Pulse Ox 97.6 F 69 16 138/65 97 08/16/19 08:00 08/16/19 08:00 08/16/19 08:00 08/16/19 08:00 08/16/19 08:00 - General well developed, well nourished, no distress - Eyes PERRL - ENT normal pinna - Neck no masses - Respiratory normal expansion - Cardiovascular Rhythm: regular - Abdomen Abdomen: soft, non tender Results - Labs Abnormal Lab Results - Last 24 Hours (Table) 08/16/19 Range/Units 08:13 POC Glucose (mg/dL) 100 H (75-99) mg/dL Assessment and Plan Assessment: Right upper quadrant pain Cholelithiasis We'll perform laparoscopic cholecystectomy
[2019-08-16] MEDS ORDERED: BUPIVACAINE (PF) 0.5% 30 ML VIAL SQ ONE (09:26)
[2019-08-16] MEDS ORDERED: PROPOFOL 10 MG/ML 20 ML VIAL IV ONE (09:27)
[2019-08-16] MEDS ORDERED: GLYCOPYRROLATE 0.2 MG/ML 2 ML VIAL ONE (09:27)
[2019-08-16] MEDS ORDERED: KETOROLAC 30 MG/ML 1 ML VIAL ONE (09:27)
[2019-08-16] MEDS ORDERED: MIDAZOLAM 2 MG/2 ML VIAL ONE (09:27)
[2019-08-16] MEDS ORDERED: SUCCINYLCHOLINE CHLORIDE 100 MG/5 ML SYR IV ONE (09:27)
[2019-08-16] MEDS ORDERED: ROCURONIUM BROMIDE 10 MG/ML 10 ML VIAL IV ONE (09:27)
[2019-08-16] MEDS ORDERED: NEOSTIGMINE 1 MG/ML 10 ML VIAL ONE (09:27)
[2019-08-16] MEDS ORDERED: LIDOCAINE 1% INJ 10MG/ML (20 ML MDV) ONE (09:27)
[2019-08-16] MEDS ORDERED: fentaNYL (PF) 50 MCG/ML 2 ML AMP ONE (09:27)
[2019-08-16 10:25] VITALS: TEMP 98.6
--- NOTE | 2019-08-16 10:27 | P.OP ---
Date of Procedure: 08/16/19 Preoperative Diagnosis: Cholecystitis Cholelithiasis Postoperative Diagnosis: Cholecystitis Cholelithiasis Procedure(s) Performed: Laparoscopic cholecystectomy Anesthesia: SURJIT Surgeon: Luis Antonio Shi Estimated Blood Loss (ml): 5 Pathology: other (Gallbladder) Condition: stable Disposition: PACU Description of Procedure: The patient was placed on the operating table. The patient received a general endotracheal tube anesthesia. The patients abdomen was prepped and draped in the usual sterile fashion. Through an infraumbilical stab incision, the fascia of the anterior abdominal wall was grasped with a pair of Kochers and then the Veress needle was placed in the peritoneal cavity. Position of the Veress needle was confirmed with positive drop test. The abdomen was then insufflated. After adequate insufflation, the 10 mm trocar was placed in the peritoneal cavity. Following this the laparoscope was placed in the peritoneal cavity. The patient was placed in the head-up, right side up position and then a 5 mm trocar was placed in the right lateral and right subcostal position under direct visualization. A 8 mm trocar was placed in the epigastric position. The gallbladder was grasped in the fundus and infundibulum. Traction on the gallbladder was placed in the lateral and the cephalad positions. The triangle of [place]ot was visualized.. The cystic duct was bluntly dissected until the union of the cystic duct and common bile duct wa s seen. A critical view of safety was achieved. The cystic duct was then divided and sealed with the Harmonic scissors. A PDS Endoloop was then placed throughout the cystic duct stump. The cystic artery divided and sealed with the Harmonic scissors. The gallbladder was then removed from the liver bed using Harmonic scissors. The gallbladder was then extracted through the epigastric port site. Operative field was checked for any bleeding spots and Harmonic scissors was used to coagulate the liver bed. The abdomen was irrigated. The trocars were removed. The skin was closed using interrupted 3-0 Vicryl suture. Dermabond dressing were applied. The patient tolerated the procedure well.
[2019-08-16] MEDS ORDERED: ONDANSETRON 4 MG/2 ML VIAL IVP ONE (10:37)
[2019-08-16] MEDS: fentaNYL (PF) 50 MCG/ML 2 ML AMP IV PRN ×2 (10:49→11:00)
[2019-08-16 11:41] VITALS: BP 133/52; PULSE 69; RESP 18
== END 2019-08-16 12:37 | disposition home or self-care (01) ==
LOC: OR 07:48
PROVIDERS: ATTEND Surgery
DX: K80.10 Calculus of gallbladder with chronic cholecystitis without obstruction (principal); I48.91 Unspecified atrial fibrillation; E11.9 Type 2 diabetes mellitus without complications; K21.9 Gastro-esophageal reflux disease without esophagitis; E78.5 Hyperlipidemia, unspecified; I10 Essential (primary) hypertension; M19.90 Unspecified osteoarthritis, unspecified site; G47.33 Obstructive sleep apnea (adult) (pediatric); Z99.89 Dependence on other enabling machines and devices; E03.9 Hypothyroidism, unspecified; G89.29 Other chronic pain; M54.9 Dorsalgia, unspecified; R32 Unspecified urinary incontinence; Z98.84 Bariatric surgery status; F31.9 Bipolar disorder, unspecified; Z87.891 Personal history of nicotine dependence; Z96.651 Presence of right artificial knee joint; Z82.3 Family history of stroke; Z80.3 Family history of malignant neoplasm of breast; Z79.01 Long term (current) use of anticoagulants; Z79.84 Long term (current) use of oral hypoglycemic drugs; Z79.890 Hormone replacement therapy; Z79.899 Other long term (current) drug therapy; Z88.8 Allergy status to other drugs, medicaments and biological substances
CPT/HCPCS: 88304; 47562; J2250; J1644; J1100; J2710; J0690; J2405; J2001; J3010; J1885; J0330; J2704

== ENCOUNTER → 2020-10-31 | Outpatient (CLI) | payer MEDICARE, BC ==
--- NOTE | 2020-11-01 10:41 | MM ---
Reason for exam: screening (asymptomatic). Last mammogram was performed 1 year and 3 months ago. History: Patient is postmenopausal. Family history of breast cancer in mother at age 53. Benign US biopsy breast VAD LT of the left breast, June 03, 2016. Benign excisional biopsy of the left breast, June 2015. Benign excisional biopsy of the right breast. Physical Findings: A clinical breast exam by your physician is recommended on an annual basis and results should be correlated with mammographic findings. MG 3D Screening Mammo W/Cad Bilateral CC and MLO view(s) were taken. Prior study comparison: August 07, 2019, bilateral MG 3d screening mammo w/cad. June 22, 2018, bilateral MG 3d screening mammo w/cad. There are scattered fibroglandular densities. Stable benign calcifications. Previous mammotome biopsy in the left breast. There is no discrete abnormality. No significant changes when compared with prior studies. ASSESSMENT: Benign, BI-RAD 2 RECOMMENDATION: Routine screening mammogram of both breasts in 1 year.
== END | disposition home or self-care (01) ==
LOC: RADMAMWWP 13:14
PROVIDERS: ATTEND Family Medicine
DX: Z12.31 Encounter for screening mammogram for malignant neoplasm of breast (principal)
CPT/HCPCS: 77063; 77067